=== PATIENT | female | born 1960 | race Two or more races ===

== ENCOUNTER 2021-04-20 21:03 | Emergency (ER) | payer OTHER ==
[~2021-04-20] VITALS: Ht 157.5 cm; Wt 68.0 kg
--- NOTE | 2021-04-20 21:15 | NUR ---
INSTRUMENT PROCESSING TECH AT PT'S BEDSIDE
--- NOTE | 2021-04-20 21:21 | NUR ---
[employer] [phone]
--- NOTE | 2021-04-20 21:34 | NUR ---
PT [id number] FROM [place] C/O "SMOKING MARIJUANA AND DRINKING WINE, SEEMS OFF" PER . PATIENT DENIES ANY COMPLAINTS DENIES S/I. PT AWAKE. TOLERATING R/A WELL WITH NO SOB.
[2021-04-20 21:40] LABS: BASOPHILS # (AUTO) 0.1 K/uL (0.0-0.2); BASOPHILS % (AUTO) 0.7 % (0.0-2.0); EOSINOPHILS % (AUTO) 2.6 % (0.0-6.0); HEMATOCRIT 40 % (33-45); HEMOGLOBIN 13.4 g/dL (11.5-14.8); LYMPHOCYTES # (AUTO) 3.1 K/uL (0.8-4.8); LYMPHOCYTES % (AUTO) 34.8 % (20.0-44.0); MEAN CORPUSCULAR HGB CONC 34 g/dl (31.0-36.0); MEAN CORPUSCULAR VOLUME 98 fL (82-100); MONOCYTES # (AUTO) 0.6 K/uL (0.1-1.30); MONOCYTES % (AUTO) 6.6 % (2.0-12.0); NEUTROPHILS # (AUTO) 4.9 K/uL (1.8-8.9); NEUTROPHILS % (AUTO) 55.3 % (43.0-81.0); PLATELET COUNT (AUTO) 291 K/uL (150-450); RED BLOOD CELL COUNT(AUTO) 4.07 MIL/uL (4.0-5.2); WHITE BLOOD COUNT (AUTO) 8.8 K/uL (4.3-11.0)
[2021-04-20 21:57] LABS: ALANINE AMINOTRANSFERASE 23 U/L (12-78); ALCOHOL, BLOOD < 3 mg/dL (0-0); ALKALINE PHOSPHATASE 62 U/L (46-116); ASPARTATE AMINOTRANSFERASE 2 U/L (15-37); BILIRUBIN,DIRECT 0.1 mg/dL (0.0-0.2); BILIRUBIN,TOTAL 0.1 mg/dL (0.2-1.0); CARBON DIOXIDE 22 mmol/L (21-32); CHLORIDE 108 mmol/L (98-107); CREATININE 0.7 mg/dL (0.6-1.3); GLUCOSE 108 mg/dL (74-106); POTASSIUM 3.4 mmol/L (3.5-5.1); SODIUM SERUM 144 mmol/L (136-145); TOTAL PROTEIN, SERUM 7.9 g/dL (6.4-8.2); UREA NITROGEN, BLOOD 18 mg/dL (7-18)
[2021-04-20 22:01] LABS: ACETAMINOPHEN < 0 ug/ml (10-30)
[2021-04-20 22:38] LABS: BILIRUBIN,URINE NEGATIVE (NEGATIVE); COLOR,URINE YELLOW (YELLOW); LEUKOCYTE ESTERASE ,URINE TRACE (NEGATIVE); NITRITE, URINE NEGATIVE (NEGATIVE); PH,URINE 5.5 (5.0-8.0); PROTEIN,URINE NEGATIVE (NEGATIVE); UGLUCOSE NEGATIVE (NEGATIVE); UROBILINOGEN,URINE 0.2 EU/dL (0.2)
--- NOTE | 2021-04-20 23:29 | NUR ---
PT REQUESTED COVID ANTIGEN SWAB; PER DR. MILLARD PT HAS NO INDICATIONS FOR COVID TEST. NO NEW ORDERS.
--- NOTE | 2021-04-21 00:25 | NUR ---
Patient discharged to home in stable condition. Written and verbal after care instructions given. Patient verbalizes understanding of instruction, pt refused to sign dc paper. Pt ambulatory with a steady gait. Dr. Hassan spoke to Roque son regarding d/c.
[2021-04-21 01:25] VITALS: BP 130/77
[2021-04-21 09:32] LABS: BACTERIA,URINE None seen /HPF (None Seen); RBC,URINE 0-1 /HPF (0-2); SQUAMOUS EPITHELIAL CELL,UR Few /HPF (None Seen); WBC,URINE 0-2 /HPF (0-3)
== END 2021-04-21 00:30 | disposition home or self-care (01) ==
LOC: ER 21:05
DX: F12.10 Cannabis abuse, uncomplicated (principal); R41.82 Altered mental status, unspecified
CPT/HCPCS: 36415; 70450-TC; 80048-TC; 80076-TC; 81001; 85025-TC; G0480